=== PATIENT | female | born 1990 | race Caucasian/White ===

== ENCOUNTER 2016-12-06 00:03 | Inpatient (IN) | payer MEDICAID ==
[~2016-12-06] VITALS: Ht 160 cm; Wt 66.7 kg
[~2016-12-06 00:03] MED LIST: PREN29TA PO
[2016-12-06] MEDS ORDERED: SODIUM CHLOR 0.9% 1000 ML INJ 1,000 ML IV SCH (01:53)
[2016-12-06] MEDS ORDERED: ACETAMINOPHEN 325 MG TAB PO PRN (02:00)
[2016-12-06] MEDS ORDERED: MAGNESIUM HYDROXIDE SUSP 30 ML CUP PO PRN (02:00)
[2016-12-06] MEDS ORDERED: Vancomycin Consult Pharmacy 1 EA OTHER SCH (02:00)
[2016-12-06] MEDS ORDERED: POTASSIUM CHLORIDE 20 MEQ CONTROLLED RELEASE TAB PO ONE (02:00)
[2016-12-06] MEDS ORDERED: BISACODYL 10 MG SUPP RECTAL PRN (02:00)
[2016-12-06] MEDS ORDERED: ONDANSETRON HCL 4 MG/2 ML VIAL IVP PRN (02:00)
[2016-12-06] MEDS ORDERED: SODIUM CHLORIDE 0.9% FLUSH 10 ML FLUSH IV FLUSH PRN (02:00)
[2016-12-06] MEDS ORDERED: NALOXONE HCL 0.4 MG/ML AMP IV PRN (02:00)
--- NOTE | 2016-12-06 02:37 | HHI.HP ---
HPI Service [facility] Hospitalists Primary Care Physician No Primary Care Physician Admission Diagnosis Sepsis with UTI Diagnoses: Chief Complaint: Increased urinary frequency, dysuria and fevers/chills Travel History International Travel<30 Days: No Contact w/Intl Traveler <30 Da: No Traveled to Known Affected Are: No Sepsis Criteria SIRS Criteria (2 or more): Temp > 100.9 or < 96.8, Heart rate over 90, WBC > 17680, < 4000 or > 10% bands Sepsis Criteria (SIRS+source): Infect source susp/known History of Present Illness This is a pleasant 26-year-old female patient whose past medical history includes genital herpes and recent vaginal 11/18/2016- patient is breast feeding. Patient reports her was uncomplicated although she does remember being on IV antibiotics after giving due to high white blood cell count but was not sent home on any antibiotics. Patient thinks was prophylactic but is unsure of the details. Patient reports 3-4 days ago she began having increased urinary frequency and dysuria. Patient also reports bilateral lower back/flank pain which started Tuesday along with subjective fevers and chills. Patient also reports mild nausea but no vomiting. Patient describes the bilateral lower back pain as a constant moderate aching sensation. Patient reports Toradol given in ER made the flank pain better. Time seems to make the pain worse. Patient presented to [facility] ER found to have a temperature of 102.3 heart rate of 120 respiratory rate of 16 blood pressure 116/73 pulse oximetry 97% on room air Laboratory data includes white blood cell count of 17 with 81.4% neutrophils, potassium of 3.2 Urinalysis revealed trace proteins moderate occult blood large amount of leukocyte esterase innumerable urine white blood cells high amount of urine red blood cells moderate urine white blood cell clumps and bacteria present culture pending. Review of Systems Except as stated in HPI: all other systems reviewed are Neg Past Family Social History Past Medical History Genital herpes recent vaginal 11/18/2016 Past Surgical History Denies surgical history Reported Medications Plus Iron 29-1 mg ( Vit-Iron Carbonyl) 1 Tab Tab 1 Tab PO DAILY Allergies: Coded Allergies: No Known Allergies (Unverified , 12/05/16) Active Ordered Medications Current Medications Medications (Trade) Dose Ordered Sig/Mike Route Start Time Stop Time Status Last Admin (NS 1000 ml Inj) 1,000 ml @ 100 mls/hr Q10H IV 12/06/16 01:53 12/06/16 11:52 12/06/16 02:32 (NS Flush) 2 ml UNSCH PRN IV FLUSH 12/06/16 02:00 (NS Flush) 2 ml BID IV FLUSH 12/06/16 09:00 (Tylenol) 650 mg Q4H PRN PO 12/06/16 02:00 (Zofran Inj) 4 mg Q6H PRN IVP 12/06/16 02:00 (Lovenox Inj) 40 mg Q24H SQ 12/06/16 02:00 (Narcan Inj) 0.4 mg UNSCH PRN IV 12/06/16 02:00 (Pita-Colace) 1 tab BID PO 12/06/16 09:00 (Milk Of Juan R Liadali) 30 ml Q12H PRN PO 12/06/16 02:00 Bisacodyl 10 mg 10 mg DAILY PRN RECTAL 12/06/16 02:00 Pharmacy Profile Note 0 ml @ 0 mls/hr UNSCH OTHER 12/06/16 02:00 (Zosyn 3.375 Gm Premix) 50 ml @ 100 mls/hr Q6H IV 12/06/16 02:00 Family History Denies family medical history regarding diabetes hypertension hyperlipidemia son cardiac or cancer Mother alive and healthy in her 50s father also in his 50s alive and healthy Social History Patient lives at home with her and 3 children recent vaginal 2016 Denies EtOH use tobacco use or illicit drug use Physical Exam Physical Exam GENERAL: This is a well-nourished, well-developed patient, in no apparent distress. SKIN: No rashes, ecchymoses or lesions. Cool and dry. HEAD: Atraumatic. Normocephalic. No temporal or scalp tenderness. EYES: Extraocular motions intact. No scleral icterus. No injection or drainage. CARDIOVASCULAR: Tachycardic without murmurs, gallops, or rubs. RESPIRATORY: Clear to auscultation. Breath sounds equal bilaterally. No wheezes , rales, or rhonchi. GASTROINTESTINAL: Abdomen soft, non-tender, nondistended. GENITOURINARY: Bilateral CVA tenderness right > left MUSCULOSKELETAL: Extremities without clubbing, cyanosis, or edema. No joint tenderness, effusion, or edema noted. No calf tenderness. Negative Homans sign bilaterally. NEUROLOGICAL: Awake and alert. No focal deficits appreciated. Motor and sensory grossly within normal limits. Five out of 5 muscle strength in all muscle groups. Normal speech. Septic Shock Reassessment Heart: Other (tachycardic) Lungs: Clear Skin: Warm, Moist Peripheral Pulses: Bounding Right Radial Bounding Left Radial Bounding Right Dorsalis Pedis Bounding Left Dorsalis Pedis Capillary Refill: Brisk, <2 seconds Assessment and Plan Problem List: (1) Sepsis ICD Code: A41.9 Status: Acute (2) Pyelonephritis ICD Code: N12 Status: Acute (3) Breast feeding status of mother ICD Code: Z39.1 Status: Acute Assessment and Plan This is a pleasant 26-year-old female patient whose past medical history includes shoulder herpes and vaginal 11/18/2016. Patient reports her was uncomplicated although she does remember being on IV antibiotics after due to high white blood cell count but was not sent home on any antibiotics patient thinks is possibly prophylactic but is unsure of the details. Patient reports 3-4 days ago she began having increased urinary frequency, dysuria with passing of urine and bilateral CVA tenderness. Sepsis( temperature 102.3, heart rate 120, white blood cell count, 17.0, suspected source UTI/pyelonephritis) UTI/pyelonephritis Patient has received IV bolus in the emergency department will continue normal saline at 100 and mouth per hour Patient started on vancomycin IV and Zosyn IV emergency department will continue Urine culture pending will adjust antibiotics once urine culture resulted Acetaminophen, ibuprofen and IV Toradol as needed for pain Renal ultrasound pending Continue supportive care and close monitoring Hypokalemia potassium 3.2 Replaced with 40 meq by mouth 1 Recheck in AM Recent vaginal - patient reports she was on IV antibiotics prophylactically after Requested records for further information - Currently breast-feeding Patient has breast pump at bedside plans to pump and dump while in the hospital Lovenox for DVT prophylaxis Discussed with nursing, patient and Dr. Joiner Physician Certification 2 Midnight Certification Type: Admission for Inpatient Services Order for Inpatient Services The services are ordered in accordance with Medicare regulations or non- Medicare payer requirements, as applicable. In the case of services not specified as inpatient-only, they are appropriately provided as inpatient services in accordance with the 2-midnight benchmark. Estimated LOS (days): 3 days is the estimated time the patient will need to remain in the hospital, assuming treatment plan goals are met and no additional complications. Post-Hospital Plan: Home Grazyna Victor December 06, 2016 02:37
[2016-12-06] MEDS: ENOXAPARIN SODIUM 40 MG/0.4 ML SYRINGE SQ SCH (02:58)
[2016-12-06] MEDS ORDERED: KETOROLAC TROMETHAMINE 60 MG/2 ML (IM) VIAL IM PRN (03:00)
[2016-12-06] MEDS: IBUPROFEN 600 MG TAB PO PRN ×3 (03:03→20:33)
[2016-12-06] MEDS: PIPERACIL-TAZO 3.375 GM PREMIX 50 ML IV SCH ×4 (03:53→20:33)
[2016-12-06 08:00] VITALS: BP 93/55; PULSE 79; RESP 17; TEMP 98.3; O2SAT 98
[2016-12-06] MEDS: SODIUM CHLORIDE 0.9% FLUSH 10 ML FLUSH IV FLUSH SCH ×2 (08:30→20:34)
[2016-12-06] MEDS: DOCUSATE SODIUM 50 MG/SENNA 8.6 MG TAB PO SCH ×2 (08:30→20:35)
[2016-12-06 12:00] VITALS: BP 99/66; PULSE 78; RESP 17; TEMP 96.6; O2SAT 100
--- NOTE | 2016-12-06 13:18 | RADRPT ---
EXAM DATE/TIME: 12/06/2016 10:39 [facility] COMPARISON: No previous studies available for comparison. INDICATIONS : Flank pain. MEDICAL HISTORY : Flank pain. Dysuria. Genital herpes. SURGICAL HISTORY : None. ENCOUNTER: Initial ACUITY: 2 days PAIN SCORE: 3/10 LOCATION: Bilateral flank MEASUREMENTS: RIGHT KIDNEY: 14.7 x 5.0 x 5.3 cm LEFT KIDNEY: 14.2 x 5.2 x 7.3 cm FINDINGS: RIGHT KIDNEY: Renal cortex is normal in thickness and echotexture. No hydronephrosis, stone, or mass. There is a distended extrarenal pelvis. LEFT KIDNEY: Renal cortex is normal in thickness and echotexture. No hydronephrosis, stone, or mass. BLADDER: There is hypoechoic mobile avascular material within the urinary bladder. CONCLUSION: 1. No acute findings identified to explain the flank pain. 2. There is debris within the urinary bladder. This could represent a blood clot or infectious materi alChristina Orozco MD on December 06, 2016 at 13:15 Board Certified Radiologist. This report was verified electronically.
[2016-12-06 16:00] VITALS: BP 102/59; PULSE 85; RESP 17; TEMP 96.9; O2SAT 98
[2016-12-06 20:00] VITALS: BP 113/63; PULSE 102; RESP 22; TEMP 99; O2SAT 98
[2016-12-06 20:33] VITALS: PULSE 95
[2016-12-06] MEDS: VANCOMYCIN 1,000 MG/NS 250 ML IV SCH ×2 (20:34)
[2016-12-07] VITALS: BP 118/66; PULSE 96; RESP 20; TEMP 99.4; O2SAT 97
[2016-12-07] MEDS: ENOXAPARIN SODIUM 40 MG/0.4 ML SYRINGE SQ SCH (03:25)
[2016-12-07] MEDS: PIPERACIL-TAZO 3.375 GM PREMIX 50 ML IV SCH ×2 (03:26→08:12)
[2016-12-07 05:22] VITALS: BP 120/72; PULSE 95; RESP 20; TEMP 98.9; O2SAT 98
[2016-12-07 05:49] LABS: AUTOMATED NEUTROPHIL # 10.9 TH/MM3 (1.8-7.7); BASOPHIL # 0.1 TH/MM3 (0-0.2); BASOPHIL % 0.4 % (0.0-2.0); EOSINOPHIL # 0.3 TH/MM3 (0-0.4); HEMATOCRIT 32.7 % (35.0-46.0); HEMO FLAGS DIFF FINAL; LYMPH % 9.1 % (9.0-44.0); LYMPHOCYTE # 1.3 TH/MM3 (1.0-4.8); MEAN CELL VOLUME 87.7 FL (80.0-100.0); MEAN CORPUSCULAR HEMOGLOBIN 29.5 PG (27.0-34.0); MEAN CORPUSCULAR HGB CONC 33.7 % (32.0-36.0); MONO % 11.2 % (0.0-8.0); NEUT % 77.3 % (16.0-70.0); PLATELET COUNT 343 TH/MM3 (150-450); RED BLOOD COUNT 3.72 MIL/MM3 (4.00-5.30); RED CELL DISTRIBUTION WIDTH 13.1 % (11.6-17.2); WHITE BLOOD COUNT 14.1 TH/MM3 (4.0-11.0)
[2016-12-07 05:56] LABS: BICARBONATE 25.6 MEQ/L (21.0-32.0); POTASSIUM 3.6 MEQ/L (3.5-5.1)
[2016-12-07 08:00] VITALS: BP 93/57; PULSE 73; RESP 20; TEMP 97.4; O2SAT 99
[2016-12-07] MEDS: VANCOMYCIN 1,000 MG/NS 250 ML IV SCH ×2 (08:12)
[2016-12-07] MEDS: SODIUM CHLORIDE 0.9% FLUSH 10 ML FLUSH IV FLUSH SCH (08:12)
[2016-12-07] MEDS: DOCUSATE SODIUM 50 MG/SENNA 8.6 MG TAB PO SCH (08:12)
[2016-12-07] MEDS: IBUPROFEN 600 MG TAB PO PRN (08:20)
[2016-12-07] MEDS ORDERED: CEFU1TAB20 PO (08:55)
--- NOTE | 2016-12-07 08:56 | HHI.DCPOC ---
Discharge Care Plan Diagnosis: (1) Sepsis (2) Pyelonephritis Goals to Promote Your Health * To prevent worsening of your condition and complications * To maintain your health at the optimal level Directions to Meet Your Goals Take your medications as prescribed Follow your dietary instruction Follow activity as directed Keep your appointments as scheduled Take your immunizations and boosters as scheduled If your symptoms worsen call your PCP, if no PCP go to Urgent Care Center or Emergency Room Smoking is Dangerous to Your Health. Avoid second hand smoke Call the 24-hour hour crisis hotline for domestic abuse at Perico Fitzgerald MD December 07, 2016 08:56
--- NOTE | 2016-12-07 09:17 | HHI.PR ---
Subjective Remarks Patient reports she is feeling much better. Afebrile. Flank pain improved. Anxious to go home. Objective Vitals Vital Signs Date Time Temp Pulse Resp B/P Pulse Ox O2 Delivery O2 Flow Rate FiO2 12/07/16 08:00 97.4 73 20 93/57 99 12/07/16 05:22 98.9 95 20 120/72 98 12/07/16 00:00 99.4 96 20 118/66 97 12/06/16 21:33 18 12/06/16 20:33 95 12/06/16 20:00 99.0 102 22 113/63 98 12/06/16 16:00 96.9 85 17 102/59 98 12/06/16 12:00 96.6 78 17 99/66 100 I/O 12/06/16 12/06/16 12/06/16 12/07/16 12/07/16 12/07/16 07:00 15:00 23:00 07:00 15:00 23:00 Intake Total 152 ml 720 ml 820 ml 500 ml 120 ml Output Total 700 ml 700 ml Balance 152 ml 720 ml 120 ml -200 ml 120 ml Intake Oral 720 ml 480 ml 240 ml 120 ml IV Total 152 ml 340 ml 260 ml Output Urine Total 700 ml 700 ml # Voids 4 # Bowel Movements 1 0 0 Result Diagram: 12/07/16 0442 12/07/16 0442 Imaging Last Impressions Renal Ultrasound 12/06/16 0000 Signed Impressions: Service Date/Time: Tuesday, December 06, 2016 10:39 - CONCLUSION: 1. No acute findings identified to explain the flank pain. 2. There is debris within the urinary bladder. This could represent a blood clot or infectious material. Manolo Orozco MD Objective Remarks GENERAL: This is a well-nourished, well-developed patient, in no apparent distress. CARDIOVASCULAR: Normal rate and regular rhythm without murmurs, gallops, or rubs. RESPIRATORY: Good respiratory efforts. Breath sounds equal and clear to auscultation bilaterally. GASTROINTESTINAL: Abdomen soft, non-tender, non-distended. Normal active bowel sounds MUSCULOSKELETAL: Extremities without cyanosis, or edema. Mild CVA tenderness NEURO: Alert & Oriented x4 to person, place, time, situation. Moves all ext x4 PSYCH: Appropriate mood and affect. A/P Problem List: (1) Sepsis ICD Code: A41.9 Status: Acute (2) Pyelonephritis ICD Code: N12 Status: Acute (3) Breast feeding status of mother ICD Code: Z39.1 Status: Acute Assessment and Plan 26-year-old female admitted with sepsis secondary to pyelonephritis. Patient's treated with IV fluid, pain control, IV antibiotics. Urine culture grew Escherichia coli sensitive to cephalosporins. The patient's condition quickly improved. She is discharged home on cefuroxime to complete the course of treatment. Discharge home in good condition Activity: Regular as tolerated Diet: Regular as tolerated Meds: Per med rec Follow-up with PCP Discharge Planning Discharge home today. Perico Fitzgerald MD December 07, 2016 09:16
[2016-12-08] MEDS ORDERED: PHARMACY ORDERED LAB ONE (07:45)
== END 2016-12-07 15:15 | disposition home or self-care (01) | DRG 776 ==
LOC: NEDDLT 00:03 → N07B 01:52
PROVIDERS: ADMIT Family Medicine; ATTEND Family Medicine
DX: O85 Puerperal sepsis (principal); O86.21 Infection of kidney following delivery; B96.20 Unspecified Escherichia coli [E. coli] as the cause of diseases classified elsewhere; E87.6 Hypokalemia
CPT/HCPCS: 76775; 80048; 81001; 82565; 83605; 85025; 85610; 85730; 87040; 87077; 87086; 87186; 87210; 87491; 87591; 96365; 96366; 96368; 96375; J1650; J1885; J2543; J3370; J7030; J7050